=== PATIENT | female | born 1990 | race Caucasian/White ===

== ENCOUNTER 2020-01-27 19:00 | Inpatient (IN) | payer MEDICAID, SELFPAY ==
[2020-01-27] VITALS (15 sets, daily range): BP systolic 0–136; BP diastolic 0–83; PULSE 84–116; RESP 15; TEMP 35.9–37
[2020-01-27 18:53] LABS: Nitrazine Paper, PH Negative
[2020-01-27 19:02] LABS: Basophils % 0.3 %; Eosinophils # 0.1 10^3/uL (0.0-0.8); Hematocrit 34.4 % (37.0-47.0); Hemoglobin 11.1 g/dL (11.5-15.3); Lymphocytes # 2.1 10^3/uL (0.8-4.8); Lymphocytes % 17.9 %; Mean Corpuscular HGB Conc 32.3 g/dL (30.0-36.0); Mean Corpuscular Hemoglobin 26.6 pg (28.0-34.0); Mean Corpuscular Volume 82.3 fL (81-99); Mean Platelet Volume 10.6 fL (7.4-10.4); Monocytes # 0.8 10^3/uL (0.2-0.9); Monocytes % 6.8 %; Neutrophils # 8.42 10^3/uL (1.8-7.7); Neutrophils % 73.1 %; Nucleated Red Blood Cells % 0 %; Platelet Count 318 10^3/cmm (130-400); Red Blood Count 4.18 10^6/uL (4.1-5.3); Red Cell Distribution Width 14.3 % (12.1-15.1); White Blood Count 11.5 10^3/uL (4.0-10.0)
[2020-01-27] MEDS: miSOPROStol 100 mcg tablet 25 MCG VAGINAL (19:41)
[2020-01-27] MEDS: dextrose 5%-lactated ringers 1,000 ML 125 ML IV (20:30)
[2020-01-28] VITALS (94 sets, daily range): BP systolic 0–153; BP diastolic 0–95; PULSE 67–118; RESP 16–20; TEMP 36.6–37.1; O2SAT 90–99
[2020-01-28] MEDS: alum-mag-hydroxide-sime 30 mL UDC PO (01:03)
[2020-01-28] MEDS: acetaminophen 325 mg Tablet 650 MG PO (01:03)
[2020-01-28] MEDS: ondansetron 2 mg/ML SDV 2 mL 4 MG IVP (01:04)
[2020-01-28] MEDS: dextrose 5%-lactated ringers 1,000 ML 125 ML IV (04:58)
[2020-01-28] MEDS: metoclopramide 5 mg/mL SDV 2 mL 10 MG IV (05:45)
[2020-01-28] MEDS: oxytocin 30 UNIT/500 ML BAG IV (07:52)
[2020-01-28] MEDS: morphine 4 mg/mL SDV 1 mL 2 MG IVP (11:03)
[2020-01-28] MEDS: lactated ringers 1,000 ML 999 ML IV (11:52)
--- NOTE | 2020-01-28 12:36 | P.ANESUD_ITS ---
Pre-Anesthetic Update Pre-Anesthetic Assessment: Date of Surgery/Procedure: 01/28/20 Labs Last 48hrs: Laboratory Results - last 48 hr 01/27/20 18:45 WBC 11.5 H RBC 4.18 Hgb 11.1 L Hct 34.4 L MCV 82.3 MCH 26.6 L MCHC 32.3 RDW 14.3 Plt Count 318 MPV 10.6 H Neut % (Auto) 73.1 Lymph % (Auto) 17.9 [place] % (Auto) 6.8 Eos % (Auto) 1.0 Baso % (Auto) 0.3 Neut # (Auto) 8.42 H Lymph # (Auto) 2.1 [place] # (Auto) 0.8 Eos # (Auto) 0.1 Baso # (Auto) 0.0 Nucleated RBC % (a uto) 0 Nucleated RBCs # 0.0 Vitals: Temperature 98.1 F 01/28/20 11:21 Temperature Source Oral 01/28/20 11:21 Pulse Rate 84 01/28/20 12:33 Respiratory Rate 20 H 01/28/20 11:21 Respiratory Effort 01/28/20 11:03 Respiratory Depth Normal 01/28/20 11:03 Respiratory Patter n 01/28/20 11:03 Blood Pressure 131/75 01/28/20 12:33 Blood Pressure Kelle n 96 01/28/20 12:33 Pulse Oximetry 95 01/28/20 12:34 Oxygen Delivery Me thod 01/27/20 18:31 Cardiac Studies: No Data to Display
--- NOTE | 2020-01-28 12:37 | ANES.PROC ---
Anesthesia Procedures Procedure/Date: 01/28/20 Epidural: Time Out Performed: Yes ([id number]) Consents Signed: Procedure Consent Consent: from patient, risks and benefits reviewed and patient agrees to proceed Lumbar Level: L3-L4 Epidural position: sitting Epidural procedure: sterile prep of area (chloraprep), 1% lidocaine to numb the area, 18 g needle, neg for paresthesia, test dose given, 1.5% xylocaine 1:200k epi (3ml), 0.2% Ropivacaine bolus ml (5 ml), placed PCEA, no systemic response, sterile dressing applied, L.U.D. no apparent complications and 0.2% Ropiavacaine @ mls/hr (12) Additional Comments: Two attempts. Taped at 12.
--- NOTE | 2020-01-28 12:39 | P.ANESASSM_ITS ---
Pre-Anesthetic Assessment Pre-Anesthetic Assessment: Height/Weight: Weight 108.862 kg Temp Pulse Resp BP Pulse Ox 98.1 F 79 20 H 135/71 95 01/28/20 11:21 01/28/20 12:36 01/28/20 11:21 01/28/20 12:36 01/28/20 12:34 Social: Social History: No alcohol and No tobacco Exam: Pre-Anes Outpt Exam: alert and oriented x 3 Airway: Submandibular: WNL Cervical ROM: WNL MP: 2 Dentition: Chipped (decay) History/ROS: Other (hx pelvic fx) Pulmonary: Pulmonary: None reported CV/HEM: CV/HEM: None reported : : None reported Hepatic: Hepatic: None reported GI: GI: None reported Metabolic: Metabolic: Morbid obesity Musc/skel: Musc/skel: None reported Neuropsych: Neuropsych: None reported Anesthetic Plan: ASA status: 2 Anesthesia: Anesthesia Evaluation and Regional (specify below) (epidural) Risk of > 500 ml blood loss (7ml/kg in children): No Meds/Allergies Current Medications: Current Medications Generic Name Dose Route Start Last Admin Trade Name Freq PRN Reason Stop Dose Admin Acetaminophen 650 mg 01/27/20 18:27 01/28/20 01:03 Tylenol PO 650 mg Q6H PRN Administration Mild pain or temp > 100.4 Al Hydrox/Mg [place] x/Simethicone 30 ml 01/27/20 18:27 01/28/20 01:03 Maalox PO 30 ml Q4H PRN Administration INDIGESTION Dextrose/Lactated Ringer's 1,000 mls @ 125 m ls/hr 01/27/20 18:30 01/28/20 09:09 Dextrose 5%-Lact ated Ringers IV 125 mls/hr .Q8H NAINA Infusion Lactated Ringer's 1,000 mls @ 999 m ls/hr 01/27/20 18:27 01/28/20 11:52 Lactated Ringers IV 999 mls/hr .Q1H1M PRN Administration Per L&D Rescitati on Protocol Oxytocin 30 unit in 500 ml s @ 1 mls/hr 01/28/20 08:00 01/28/20 09:20 Pitocin IV 3 milliunit/min .Q24H NAINA 3 mls/hr Titration Protocol 1 MILLIUNIT/MIN Ondansetron HCl 4 mg 01/27/20 18:27 01/28/20 01:04 Zofran IVP 4 mg Q4H PRN Administration NAUSEA AND VOMITI NG PFSH Anesthesia Female Reproductive History: : 5 Data Anesthesia CBC & Chem 7: 01/27/20 18:45 Other Labs: Laboratory Results - last 48 hr 01/27/20 18:45 WBC 11.5 H RBC 4.18 Hgb 11.1 L Hct 34.4 L MCV 82.3 MCH 26.6 L MCHC 32.3 RDW 14.3 Plt Count 318 MPV 10.6 H Neut % (Auto) 73.1 Lymph % (Auto) 17.9 [place] % (Auto) 6.8 Eos % (Auto) 1.0 Baso % (Auto) 0.3 Neut # (Auto) 8.42 H Lymph # (Auto) 2.1 [place] # (Auto) 0.8 Eos # (Auto) 0.1 Baso # (Auto) 0.0 Nucleated RBC % (auto) 0 Nucleated RBCs # 0.0 Cardiac Studies: No Data to Display
[2020-01-28] MEDS: oxytocin 30 UNIT/500 ML BAG 600 UNIT IV (13:01)
[2020-01-28] MEDS: ibuprofen 800 mg tablet PO (13:54)
[2020-01-28] MEDS: benzocaine-menthol 78 gm Canister 1 SPRAY TOPICAL (13:54)
--- NOTE | 2020-01-28 14:01 | PC.NURSE ---
This nurse reached out to [facility] DSS (Erick Nunez) at 1343 and inquired if a hotline needed to be made regarding the patient not having custody of her 2 other children. Erick was informed the child would be going to an adoptive family and the legal paperwork had been reviewed by the [facility] workers compensation attorney. She stated that she was familiar with the patient and that she would reach out to her boss for guidance. A return call was received at 1350 and stated for the nursing staff to call and make a hotline referral. Primary nurse notified.
--- NOTE | 2020-01-28 15:25 | PC.NURSE ---
Patient had no care until 1 week ago. Patient also does not have custody of her two other children. Legal paperwork for adoption had been drawn up prior to patient's arrival and delivery. Hotline call made and creative writer was told that this doesn't qualify as a crisis and a report would not be filed. Shira Peters was the worker creative writer spoke to
--- NOTE | 2020-01-28 17:31 | PM.OBGYDC ---
Discharge Providers CHEMICAL EQUIPMENT CONTROLLER Date of Admission: 01/27/20 19:00 Date of Discharge: 01/28/20 Attending Provider at Admission: Buddy Chiu MD Attending Provider at Discharge: Buddy Chiu MD Primary Care Provider: SANJUANA Stephens Diagnoses at Discharge Discharge Diagnosis (1) 40 weeks gestation of : Status: Acute (2) Spontaneous vaginal delivery: Status: Acute (3) care insufficient: Status: Acute (4) with adoption planned: Status: Acute Reason for Visit Reason for Visit: Abdominal pain and Vaginal discharge Hospital Course Hospital Course: The patient presented to the hospital concerned that she had spontaneous rupture membranes as well as contractions. Her membranes were intact. But she was having intermittent contractions. We elected to augment her labor with Cytotec 25 mcg x 1. She had spontaneous rupture of membranes the following morning. Once again her labor was augmented with Pitocin. An epidural was placed. She had a spontaneous vaginal delivery of a healthy baby. She gave her baby up for adoption. Her bleeding was within normal limits. We elected to have her go home a little earlier than usual because we wanted her to be off the OB floor for obvious reasons. Information Peripartum Data: Delivery Method: Vaginal Physical Exam Narrative: EXAM NARRATIVE: The patient is alert. She appears comfortable. Her heart has a regular rate and rhythm with no murmurs appreciated. Lungs are clear to auscultation bilaterally. Her fundus is firm and below the umbilicus. Urinary Catheter Management^: Lau: Cath Placed During This Visit: yes, but has since been removed by the nurse Reason for Continuing Indwelling Catheter: Decision to DC Catheter Urinary Catheter Date of Insertion: 01/28/20 Urinary Catheter Time of Insertion: 12:40 Date Urinary Catheter Removed: 01/28/20 Time Urinary Catheter Discontinued: 12:55 Discharge Data Data Completed and Pending: Pending at discharge Category Date Time Status Hemagram Timed Lab 01/29/20 01:32 Uncollected Labs from last 24 hours 01/27/20 18:45 WBC 11.5 H RBC 4.18 Hgb 11.1 L Hct 34.4 L MCV 82.3 MCH 26.6 L MCHC 32.3 RDW 14.3 Plt Count 318 MPV 10.6 H Neut % (Auto) 73.1 Lymph % (Auto) 17.9 [place] % (Auto) 6.8 Eos % (Auto) 1.0 Baso % (Auto) 0.3 Neut # (Auto) 8.42 H Lymph # (Auto) 2.1 [place] # (Auto) 0.8 Eos # (Auto) 0.1 Baso # (Auto) 0.0 Nucleated RBC % (a uto) 0 Nucleated RBCs # 0.0 Vitals: Last Vital Signs Temp 98.2 F 01/28/20 15:22 Pulse 109 H 01/28/20 17:18 Resp 16 01/28/20 15:22 BP 119/71 01/28/20 17:18 Pulse Ox 95 01/28/20 12:34 Discharge Plan Discharge Patient Disposition: Home Condition: Stable Prescriptions: New ibuprofen 800 mg Tablet 800 mg PO TID Qty: 45 RF: 1 -U 106.5-1 mg Capsule 1 cap PO DAILY Qty: 90 RF: 0 Tylenol Extra Strength 500 mg tablet 1,000 mg PO Q8H PRN (Reason: pain) Qty: 60 RF: 1 Discharge Orders: Discharge Order (Routine); Ordered 01/28/20 Ordered By: Buddy Chiu Referrals: Buddy Chiu MD [Physician] - (YOU HAVE AN APPT ON 02.04.2020 AT 8:15AM AND IN 6 WKKS ON 03.10.2020 AT 12:00PM. BOTH ARE WITH DR. CHIU) Discharge Diet: Usual diet Discharge Activity: Limit activity as instructed Patient Instructions: Bleeding (GEN), OB Discharge Report, OB Food/Drug Interaction Guide, OB Vaginal Deliveries, Depression Discharge Attestations CHEMICAL EQUIPMENT CONTROLLER Time Spent in Discharge Care*: less than 30 min Coding Level of Care Code Acute Subway Operator for Chg Fwd Diagnoses 40 weeks gestation of Z3A.40 Spontaneous vaginal delivery O80 care insufficient O09.30 with adoption planned Z34.90
[2020-01-28] MEDS: docusate sodium 100 mg Capsule PO (17:35)
--- NOTE | 2020-01-28 17:42 | P.PCNOB_ITS ---
Delivery Note: Date of delivery: January 28, 2020 Pre-Delivery Course: The patient is a 29-year-old multigravida female who arrived to the hospital at 39 weeks and 6 days with contractions and presumption of spontaneous rupture membranes. Her membranes were found to be intact. But she continued to have contractions. Labor was augmented with Cytotec 25 mcg x 1. She had spontaneous rupture of membranes. Pitocin was used to augment her labor. An epidural was placed. She progressed to complete without difficulty. Delivery: DELIVERY: The patient progressed to complete without difficulty. She delivered a female with a weight of 7 pounds 10 ounces with Apgars of 8, 9. The baby was delivered from the CLARKE position. The baby's mouth and nose were suctioned at the site of the perineum. The baby was then completely delivered and placed on the mother's abdomen. The cord was then clamped and cut. There was a nuchal cord x1. She was delivered through the nuchal cord. There was no meconium. The placenta and 3 vessel cord were delivered intact shortly thereafter. The perineum and vaginal vault were carefully examined. A posterior midline first-degree tear was noted. It was repaired with 3-0 Vicryl in a usual fashion. Both the mother and the baby were in stable condition. A&P Assessment and plan (1) 40 weeks gestation of : I anticipate the patient will be discharged home this evening if she has minimal bleeding. Status: Acute (2) Spontaneous vaginal delivery: Status: Acute (3) care insufficient: Status: Acute (4) with adoption planned: Status: Acute Coding Level of Care Code Acute Payroll Accounting Specialist for Chg Fwd Diagnoses 40 weeks gestation of Z3A.40 Spontaneous vaginal delivery O80 care insufficient O09.30 with adoption planned Z34.90
== END 2020-01-28 17:30 | disposition home or self-care (01) | DRG 807 ==
LOC: OBGYN 01-28 00:42
PROVIDERS: Admitting Provider Family Medicine; Family Provider Nurse Practitioner; PCP Nurse Practitioner; Visit Provider Family Medicine
DX: O42.02 Full-term premature rupture of membranes, onset of labor within 24 hours of rupture (principal); Z37.0 Single live birth; Z3A.39 39 weeks gestation of pregnancy; O69.81X0 Labor and delivery complicated by cord around neck, without compression, not applicable or unspecified; O70.0 First degree perineal laceration during delivery
CPT/HCPCS: 12345; 36415; 51702; 59025; 59409; 83986; 85025; 96375; 99211; J2270; J2405; J2765; J2795